=== PATIENT | male | born 1985 | race Caucasian/White ===

== ENCOUNTER 2016-06-06 16:36 | Inpatient (IN) | payer BC, OTHER ==
[2016-06-06 16:59] VITALS: BMI 27.8
[2016-06-06] MEDS ORDERED: ALBUTEROL SO4 2.5/IPRATROPIUM 0.5 INH SOL 3 ML VIAL.NEB. NEB ONE ×2 (17:26→17:41)
--- NOTE | 2016-06-06 17:26 | PDOC ---
History of Present Illness - History of Present Illness Initial Comments: 06/06/16 18:10 The patient is a 31 year old male, with a significant past medical history of HIV/AIDS, who presents to the emergency department with vomit, diarrhea, cough and shortness of breath since earlier this week and new onset of fever yesterday. He states he has not had an episode of vomiting since about 5 days ago, but reports continued nausea. He reports similar experience with his episodes of diarrhea. He reports his diarrhea as watery and brown. He denies any blood or mucous in his diarrhea. The patient states he is a smoker, however , has had increased shortness of breath for the past couple of day. He denies chest pain, headache and dizziness. He denies constipation. He denies dysuria, frequency, urgency and hematuria. Allergies: Penicillins Social history: tobacco use daily. PCP - Dr. Chau <Maya Landeros - Last Filed: 06/06/16 19:28> <Evelyn Evans - Last Filed: 06/07/16 01:22> - General Chief Complaint: Shortness of Breath Stated Complaint: SOB/FEVER/COUGH Time Seen by Provider: 06/06/16 17:25 Past History <Maya Landeros - Last Filed: 06/06/16 19:28> - Past Medical History Hypercholesterolemia: Yes HIV: Yes - Psycho/Social/Smoking Cessation Hx Anxiety: Yes Suicidal Ideation: No Smoking History: Current every day smoker Have you smoked in the past 12 months: Yes Number of Cigarettes Smoked Daily: 10 Information on smoking cessation initiated: No Hx Alcohol Use: No Drug/Substance Use Hx: No Substance Use Type: None <Evelyn Evans - Last Filed: 06/07/16 01:22> - Past Medical History Allergies/Adverse Reactions: Allergies Allergy/AdvReac Type Severity Reaction Status Date / Time Penicillins Allergy Unknown Verified 06/06/16 17:00 Home Medications: Ambulatory Orders Emtricitab/Rilpiviri/Tenof Ala [Odefsey Tablet] 1 each PO DAILY 06/06/16 Review of Systems - Review of Systems Able to Perform ROS?: Yes Comments:: 06/06/16 18:10 CONSTITUTIONAL: (+) fever, Absent:chills, diaphoresis, generalized weakness, malaise, loss of appetite HEENT: Absent: rhinorrhea, nasal congestion, throat pain, throat swelling, difficulty swallowing, mouth swelling, ear pain, eye pain, visual Changes CARDIOVASCULAR: Absent: chest pain, syncope, palpitations, irregular heart rate, lightheadedness , peripheral edema RESPIRATORY: (+) shortness of breath, dyspnea with exertion. Absent: cough, orthopnea, wheezing, stridor, hemoptysis GASTROINTESTINAL: (+) nausea, vomiting, diarrhea. Absent: abdominal pain, abdominal distension, constipation, melena, hematochezia GENITOURINARY: Absent: dysuria, frequency, urgency, hesitancy, hematuria, flank pain, genital pain MUSCULOSKELETAL: Absent: myalgia, arthralgia, joint swelling SKIN: Absent: rash, itching, pallor HEMATOLOGIC/IMMUNOLOGIC: Absent: easy bleeding, easy bruising, lymphadenopathy, frequent infections ENDOCRINE: Absent: unexplained weight gain, unexplained weight loss, heat intolerance, cold intolerance NEUROLOGIC: Absent: headache, focal weakness or paresthesias, dizziness, unsteady gait, seizure, mental status changes, bladder or bowel incontinence PSYCHIATRIC: Absent: anxiety, depression, suicidal or homicidal ideation, hallucinations. <Maya Landeros - Last Filed: 06/06/16 19:28> *Physical Exam - Vital Signs Last Vital Signs Temp Pulse Resp BP Pulse Ox 98.7 F 100 H 18 117/79 93 L 06/06/16 16:55 06/06/16 16:55 06/06/16 16:55 06/06/16 16:55 06/06/16 16:55 - Physical Exam Comments: 06/06/16 18:11 GENERAL: Well developed, well nourished. Awake and alert. No acute distress. HEENT: Normocephalic, atraumatic. PERRLA, EOMI. No conjunctival pallor. Sclera are non- icteric. Moist mucous membranes. Oropharynx is clear. NECK: Supple. Full ROM. No JVD. Carotid pulses 2+ and symmetric, without bruits. No thyromegaly. No lymphadenopathy. CARDIOVASCULAR: Regular rate and rhythm. No murmurs, rubs, or gallops. Distal pulses are 2+ and symmetric. PULMONARY: (+) scattered ronchi and crackles. No evidence of respiratory distress.No wheezing. ABDOMINAL: Soft. Non-tender. Non-distended. No rebound or guarding. No organomegaly. Normoactive bowel sounds. MUSCULOSKELETAL Normal range of motion at all joints. No bony deformities or tenderness. No CVA tenderness. EXTREMITIES: No cyanosis. No clubbing. No edema. No calf tenderness. SKIN: Warm and dry. Normal capillary refill. No rashes. No jaundice. NEUROLOGICAL: Alert, awake, appropriate. Cranial nerves 2-12 intact. Normoreflexic in the upper and lower extremities. Normal speech. Toes are down-going bilaterally. Gait is normal without ataxia. PSYCHIATRIC: Cooperative. Good eye contact. Appropriate mood and affect. <Maya Landeros - Last Filed: 06/06/16 19:28> - Vital Signs Last Vital Signs Temp Pulse Resp BP Pulse Ox 98.7 F 100 H 18 117/79 93 L 06/06/16 16:55 06/06/16 16:55 06/06/16 16:55 06/06/16 16:55 06/06/16 16:55 <Evelyn Evans - Last Filed: 06/07/16 01:22> ED Treatment Course - LABORATORY CBC & Chemistry Diagram: 06/06/16 18:15 06/06/16 18:15 - RADIOLOGY Radiograph Interpretation: 06/06/16 19:28 CXR was read at 19:[address] Weaver Impression: Hyperaeration - Medications Given in the ED: ED Medications Discontinued Medications Generic Name Dose Route Start Last Admin Trade Name Freq PRN Reason Stop Dose Admin Albuterol/Ipratropium 1 amp 06/06/16 17:26 06/06/16 17:42 Duoneb - NEB 06/06/16 17:27 1 amp ONCE ONE Administration <Maya Landeros - Last Filed: 06/06/16 19:28> - LABORATORY CBC & Chemistry Diagram: 06/06/16 18:15 06/06/16 18:15 <Evelyn Evans - Last Filed: 06/07/16 01:22> Medical Decision Making - Medical Decision Making 06/06/16 22:53 I spoke at length w pt and his partner because of concern for new wheezing-no prior h/o asthma. He has some body aches,nausea,fever,cough ct scan chest - no infiltrates,no consolidation,no ,masses -influenza negative -pt remains slightly hypoxic (91%) and requires oxygen -he denies any chest pain and his ekg is nsr with no signs of ischemia - I told him that he requires bronchodilators and steroids. He feels that he simply needs some antibiotics PMH PCP pneumonia,HIV,tobacco use 06/07/16 00:18 -pt agrees to stay, he still feels sob 06/07/16 01:12 imp reactive airway 06/07/16 01:14 <Evelyn Evans - Last Filed: 06/07/16 01:22> *DC/Admit/Observation/Transfer - Attestations Scribe Attestion: 06/06/16 18:11 Documentation prepared by Maya Landeros, acting as medical services coordinator for Evelyn Evans MD <Maya Landeros - Last Filed: 06/06/16 19:28> - Discharge Dispostion Admit: Yes <Evelyn Evans - Last Filed: 06/07/16 01:22> Diagnosis at time of Disposition: Wheezing Dyspnea Qualifiers: Dyspnea type: shortness of breath Qualified Code(s): R06.02 - Shortness of breath
[2016-06-06] MEDS ORDERED: ONDANSETRON 4 MG/2 ML VIAL ONE (17:50)
[2016-06-06 18:33] LABS: BASOPHIL 1.2 % (0-2.0); EOSINOPHIL 0.3 % (0-4.5); MCH 31.6 pg (25.7-33.7); MCHC 33.4 g/dl (32.0-35.9); MEAN CELL VOLUME 94.6 fl (80-96); MEAN PLT VOLUME 8.8 fl (7.5-11.1); PLATELET COUNT 248 K/MM3 (134-434); RDW 13.3 % (11.9-15.9); WHITE BLOOD COUNT 10.2 K/mm3 (4.0-10.0)
[2016-06-06 18:56] LABS: ALBUMIN 4.1 g/dl (3.4-5.0); CREATININE 1.7 mg/dL (0.7-1.3)
[2016-06-06 19:02] LABS: BILIRUBIN,TOTAL 0.6 mg/dL (0.2-1.0); TOT PROT 8.1 g/dl (6.4-8.2)
[2016-06-06] MEDS ORDERED: methylPREDNISolone NA SUCC 125 MG/2 ML VIAL IVPB ONE (22:52)
[2016-06-06] MEDS ORDERED: ALBUTEROL SO4 0.083% IH SOL 2.5 MG/3 ML VIAL.NEB. NEB ONE ×2 (22:55→23:41)
[2016-06-06] MEDS ORDERED: methylPREDNISolone NA SUCC 125 MG/2 ML VIAL ONE (22:58)
[2016-06-06] MEDS ORDERED: IPRATROPIUM BR 0.02% 0.5 MG/2.5 ML VIAL.NEB. NEB ONE (22:59)
[2016-06-06] MEDS: ALBUTEROL SO4 2.5/IPRATROPIUM 0.5 INH SOL 3 ML VIAL.NEB. NEB SCH ×2 (23:12→23:15)
[2016-06-06] MEDS ORDERED: AZITHROMYCIN 250 MG TABLET (FP) PO ONE (23:32)
[2016-06-06] MEDS ORDERED: AZITHROMYCIN 250 MG TABLET (FP) ONE (23:42)
--- NOTE | 2016-06-07 01:22 | PN ---
<Elisabeth Pillai - Last Filed: 06/07/16 01:22> Teaching Attending Note Name of Resident: Loren Prather ATTENDING PHYSICIAN STATEMENT I saw and evaluated the patient. I reviewed the resident's note and discussed the case with the resident. I agree with the resident's findings and plan as documented. SUBJECTIVE: OBJECTIVE: ASSESSMENT AND PLAN: <López Olivareshel - Last Filed: 06/07/16 03:30> Teaching Attending Note ATTENDING PHYSICIAN STATEMENT I saw and evaluated the patient. I reviewed the resident's note and discussed the case with the resident. I agree with the resident's findings and plan as documented. SUBJECTIVE: The patient is a 31 yo M with a PMHx of HIV/AIDS who presents with vomiting, diarrhea, and cough and dyspnea. Patient reports he is HIV (+) due to substance abuse. He also reports recent steroid use via injectables for the past 6 months. He denies headache or dizziness. He denies fever, chills, nausea, constipation. He denies dysuria, frequency, urgency or hematuria. OBJECTIVE: Physical Last Vital Signs Temp Pulse Resp BP Pulse Ox 98.6 F 106 H 24 114/65 93 L 06/07/16 01:30 06/07/16 01:30 06/07/16 01:30 06/07/16 01:30 06/06/16 19:35 GEN: NAD HEENT: NCAT, PERRL CARD: + Tachycardic, S1 S2 RESP: + Mildy decreased breath sounds at the bases. CTAB ABD: NT, BWS x4 EXT: - CCE CBCD WBC 10.2 K/mm3 (4.0-10.0) H D 06/06/16 18:15 RBC 5.78 M/mm3 (4.00-5.60) H 06/06/16 18:15 Hgb 18.2 GM/dL (11.7-16.9) H D 06/06/16 18:15 Hct 54.6 % (35.4-49) H D 06/06/16 18:15 MCV 94.6 fl (80-96) 06/06/16 18:15 MCHC 33.4 g/dl (32.0-35.9) 06/06/16 18:15 RDW 13.3 % (11.9-15.9) D 06/06/16 18:15 Plt Count 248 K/MM3 (134-434) 06/06/16 18:15 MPV 8.8 fl (7.5-11.1) 06/06/16 18:15 CMP Sodium 138 mmol/L (136-145) 06/06/16 18:15 Potassium 4.0 mmol/L (3.5-5.1) 06/06/16 18:15 Chloride 102 mmol/L (98-107) 06/06/16 18:15 Carbon Dioxide 24 mmol/L (21-32) 06/06/16 18:15 Anion Gap 12 (8-16) 06/06/16 18:15 BUN 14 mg/dL (7-18) 06/06/16 18:15 Creatinine 1.7 mg/dL (0.7-1.3) H D 06/06/16 18:15 Creat Clearance w eGFR 46.94 (>60) 06/06/16 18:15 Calcium 9.0 mg/dL (8.5-10.1) 06/06/16 18:15 Total Bilirubin 0.6 mg/dL (0.2-1.0) D 06/06/16 18:15 AST 31 U/L (15-37) 06/06/16 18:15 ALT 59 U/L (12-78) D 06/06/16 18:15 Alkaline Phosphatase 88 U/L (45-117) D 06/06/16 18:15 Total Protein 8.1 g/dl (6.4-8.2) D 06/06/16 18:15 Albumin 4.1 g/dl (3.4-5.0) D 06/06/16 18:15 Imaging: Chest CT Impression: Mild chronic lung disease with no acute pathology within the chest. Chest Xray Impression: Hyperaeration, otherwise normal chest. EKG Sinus tachycardic at 100 bpm. QTC at 423 ASSESSMENT AND PLAN: The patient is a 31 yo M with a PMHx of HIV/AIDS who presents with SOB, vomiting, diarrhea being admitted for dyspnea. 1.) Dyspnea - Differential diagnosis: Asthma/ bronchitis/ Questionable pulmonary HTN / Questionable possible cardiac etiology/ Infiltrative disease - Low wells score of 1.5 (Tachycardia) less likely PE - CT Chest with chronic lung disease - Echo complete - Trend troponins/ EKG - Duo nebs - Prednisone 60 mg in AM - Flu negative - No evidence of acute lung disease seen on CT - Pulmonary consult 2.) Increased Hematocrit - Most likey due to dehydration - IVF - Repeat CBC 3.) Acute renal failure - IVF - Urine lytes in AM - Most likely due to dehydration 4.) AIDS - ID Consult - Last CD4 count was 300 and viral load was undetectable - Continue with Odefsey 5.) DVT Ppx - Heparin 5,000 units SQ Documentation prepared by Corie Olivares, acting as medical art therapist for Elisabeth Pillai DO.
[2016-06-07 02:08] LABS: TROPONIN I < 0.02 ng/ml (0.00-0.05)
[2016-06-07] MEDS ORDERED: ALBUTEROL SO4 2.5/IPRATROPIUM 0.5 INH SOL 3 ML VIAL.NEB. NEB PRN (03:21)
--- NOTE | 2016-06-07 03:24 | HP ---
CHIEF COMPLAINT: Shortness of breath PCP: Dr. Chau HISTORY OF PRESENT ILLNESS: Patient is a 31 year old male with a PMHx of HIV/AIDS with CD4 300 and undetectable viral load three months ago presented today complaining of shortness of breath that began yesterday. Patient states the shortness of breath worsened today, which prompted this hospital visit. Patient reports he "has not been feeling right" for the last two weeks with runny nose, productive nonbloody cough with green phlegm, fatigue, and subjective fevers. He states the cough is so "violent" that it hurts his chest whenever he coughs or takes a deep breath in. Patient also states he had a "stomach virus" one week ago with vomiting and diarrhea. Patient reports that he began smoking a half a pack of cigarettes one year ago and at the same time started working at the [employer] for the [employer] where he is exposed to a lot of dust and dirt. Patient also notes his HAART medication was changed from Atripla to Odefsey due to his increasing creatinine three months ago. He also admits to taking injectable steroids called nandrolone decanoate for bodybuilding 6 months on and 6 months off. Otherwise, patient denies chest pain, palpitations , abdominal pain, headache, dizziness, loss of consciousness, acute visual changes. ER course was notable for: (1) DuoNeb x3 (2) Solu-Medrol 125mg IV (3) Azithromycin 500mg IV Recent Travel: Denies PAST MEDICAL HISTORY: HIV/AIDS (7 years ago contracted through IV drug use), Pneumocystits pneumonia PAST SURGICAL HISTORY: Denies Social History: Smokin.5 PPD Alcohol: Occasionally Drugs: Former IV Drug user Family History: "Different types of cancer in both sides of the family" Allergies: Penicillins Allergy (Unknown, Verified 06/06/16 17:00) HOME MEDICATIONS: Home Medications Medication Instructions Recorded Emtricitab/Rilpiviri/Tenof Ala 1 each PO DAILY 06/06/16 [Odefsey Tablet] REVIEW OF SYSTEMS CONSTITUTIONAL: fever, chills, diaphoresis, generalized weakness, malaise Absent: loss of appetite, weight change HEENT: rhinorrhea, nasal congestion Absent: throat pain, throat swelling, difficulty swallowing, mouth swelling, ear pain, eye pain, visual changes CARDIOVASCULAR: Absent: chest pain, syncope, palpitations, irregular heart rate, lightheadedness , peripheral edema RESPIRATORY: cough, shortness of breath Absent: dyspnea with exertion, orthopnea, wheezing, stridor, hemoptysis GASTROINTESTINAL: Absent: abdominal pain, abdominal distension, nausea, vomiting, diarrhea, constipation, melena, hematochezia GENITOURINARY: Absent: dysuria, frequency, urgency, hesitancy, hematuria, flank pain, genital pain MUSCULOSKELETAL: Absent: myalgia, arthralgia, joint swelling, back pain, neck pain SKIN: Absent: rash, itching, pallor HEMATOLOGIC/IMMUNOLOGIC: Absent: easy bleeding, easy bruising, lymphadenopathy, frequent infections ENDOCRINE: Absent: unexplained weight gain, unexplained weight loss, heat intolerance, cold intolerance NEUROLOGIC: Absent: headache, focal weakness or paresthesias, dizziness, unsteady gait, seizure, mental status changes, bladder or bowel incontinence PSYCHIATRIC: Absent: anxiety, depression, suicidal or homicidal ideation, hallucinations. Vital Signs - 24 hr 06/06/16 06/06/16 06/06/16 16:55 18:42 19:35 Temperature 98.7 F 98.9 F Pulse Rate 100 H Pulse Rate [ 108 H Left Radial] Respiratory 18 26 H Rate Blood Pressure 117/79 Blood Pressure 126/67 [Left Arm] O2 Sat by Pulse 93 L 96 93 L Oximetry (%) 06/07/16 06/07/16 01:30 03:23 Temperature 98.6 F 98.6 F Pulse Rate Pulse Rate [ 106 H 81 Left Radial] Respiratory 24 22 Rate Blood Pressure Blood Pressure 114/65 103/65 [Left Arm] O2 Sat by Pulse 100 Oximetry (%) PHYSICAL EXAMINATION GENERAL: Awake, alert, and fully oriented, in no acute distress. HEAD: Normal with no signs of trauma. EYES: Pupils equal, round and reactive to light, sclera anicteric, conjunctiva clear. EARS, NOSE, THROAT: Oropharynx clear without exudates. Moist mucous membranes. NECK: Supple without lymphadenopathy, JVD, or masses. LUNGS: Decreased breath sounds throughout lung bases bilaterally. No wheezes, and no crackles. No accessory muscle use. HEART: Tachycardic with normal rhythm, normal S1 and S2 without murmur, rub or gallop. ABDOMEN: Soft, nontender, not distended, normoactive bowel sounds, no guarding, no rebound, no masses. No hepatomegaly or splenomegaly. EXTREMITIES: No calf tenderness. No peripheral edema. NEUROLOGICAL: No focal deficits. Normal speech. PSYCHIATRIC: Cooperative. Good eye contact. Appropriate mood and affect. SKIN: Warm, dry, normal turgor, no rashes or lesions noted. Lab Results WBC 10.2 K/mm3 (4.0-10.0) H D 06/06/16 18:15 RBC 5.78 M/mm3 (4.00-5.60) H 06/06/16 18:15 Hgb 18.2 GM/dL (11.7-16.9) H D 06/06/16 18:15 Hct 54.6 % (35.4-49) H D 06/06/16 18:15 MCV 94.6 fl (80-96) 06/06/16 18:15 MCHC 33.4 g/dl (32.0-35.9) 06/06/16 18:15 RDW 13.3 % (11.9-15.9) D 06/06/16 18:15 Plt Count 248 K/MM3 (134-434) 06/06/16 18:15 Sodium 138 mmol/L (136-145) 06/06/16 18:15 Potassium 4.0 mmol/L (3.5-5.1) 06/06/16 18:15 Chloride 102 mmol/L (98-107) 06/06/16 18:15 Carbon Dioxide 24 mmol/L (21-32) 06/06/16 18:15 Anion Gap 12 (8-16) 06/06/16 18:15 BUN 14 mg/dL (7-18) 06/06/16 18:15 Creatinine 1.7 mg/dL (0.7-1.3) H D 06/06/16 18:15 Random Glucose 68 mg/dL (74-106) L D 06/06/16 18:15 Calcium 9.0 mg/dL (8.5-10.1) 06/06/16 18:[address]: Mild chronic lung disease with no acute pathology within the chest. Chest Xray: Impression: Hyperaeration, otherwise normal chest. EKG: Sinus tachycardic @100 BPM. QTC at 423 ASSESSMENT/PLAN: Patient is a 31 year old male with a PMHx of HIV/AIDS who presents for shortness of breath associated with fatigue, productive cough, and subjective fevers that worsened in the last 24 hours. Patient admitted for for further monitoring and management. Dyspnea -Possibly due to Bronchitis, infiltrative disease, URI, PE -WELLS SCORE: 1.5 with just tachycardia. -91%-92% 02 on room air -Continue 2L of 02 -D-dimer ordered -BNP ordered -CT Chest revealed chronic lung disease -ECHO ordered -Trend troponins, first set negative -Continue Duo-Neb PRN -Prednisone 60mg daily -Pulmonology consult placed -Flu negative FITZ -Likely due to dehydration from recent gastroenteritis -Creatinine 1.7 with last one 1.4 three months ago -Normal Saline @100mls/hr -Urine electrolytes in the morning -Continue to trend BMP Increased Hematocrit -Likely due to dehydration -IV Normal Saline ordered @100mls/hr -Trend CBC HIV/AIDS -Last CD4 count 300 and Viral load undetectable three months ago -Will continue Odefsey -ID Consult placed F/E/N -IV NS @100mls/hr -Electrolytes wnl -Regular Diet Prophylaxis -Heparin 5000 SQ for DVT -No GI needed Disposition -Full code -Admitted to noncardiac telemetry Visit type - Emergency Visit Emergency Visit: Yes ED Registration Date: 06/07/16 Care time: The patient presented to the Emergency Department on the above date and was hospitalized for further evaluation of their emergent condition. - New Patient This patient is new to me today: Yes Date on this admission: 06/07/16 - Critical Care Critical Care patient: No
[2016-06-07] MEDS ORDERED: SODIUM CHLORIDE 1,000 ML IV SCH ×2 (05:00→06:45)
[2016-06-07 06:29] LABS: MCH 31.6 pg (25.7-33.7); MCHC 33.5 g/dl (32.0-35.9); MEAN CELL VOLUME 94.2 fl (80-96); MEAN PLT VOLUME 8.6 fl (7.5-11.1); PLATELET COUNT 246 K/MM3 (134-434); RDW 13.1 % (11.9-15.9); WHITE BLOOD COUNT 6.2 K/mm3 (4.0-10.0)
[2016-06-07] MEDS ORDERED: HEPARIN NA (PORCINE) 5,000 UNITS/ML 1ML VIAL ONE (06:54)
[2016-06-07] MEDS: HEPARIN NA (PORCINE) 5,000 UNITS/ML 1ML VIAL SQ SCH ×2 (07:01→14:36)
[2016-06-07 07:03] LABS: CALCIUM 8.7 mg/dL (8.5-10.1); CREATININE 1.6 mg/dL (0.7-1.3)
[2016-06-07] MEDS ORDERED: HEPARIN NA (PORCINE) 5,000 UNITS/ML 1ML VIAL SQ SCH (10:00)
[2016-06-07] MEDS ORDERED: predniSONE 20 MG TABLET (UD) PO SCH ×2 (10:00→13:43)
--- NOTE | 2016-06-07 13:38 | CON.PULM ---
Consult Consult Specialty:: PULMONARY Referred by:: Dr. Pillai Reason for Consultation:: shortness of breath - History of Present Illness Chief Complaint: shortness of breath History of Present Illness: 31yo male with h/o HIV CD4 300, h/o PCP pneumonia, anabolic steroid use who presents with worsening shortness of breath x 2 days. Reports recent GI illness with vomiting and diarrhea, +sick contacts, developed cough productive of green sputum. +subjective fevers and chills. No chest pain or palpitations. Reports compliance with his ART. He does smoke 1.5 PPD x 1 year and works with the [employer] where he is exposed to a lot of dust. - History Source History Provided By: Patient, Medical Record Limitations to Obtaining History: No Limitations - Past Medical History Pulmonary: Yes: Pneumonia (on 01/21/2014) Infectious Disease: Yes: HIV (Patient dois closes that his HIV Test was positive in 2013 and he is not on any treatment. HIV was related on unprotected sex.) - Past Surgical History Past Surgical History: Yes: None - Alcohol/Substance Use Hx Alcohol Use: No History of Substance Use: reports: None - Smoking History Smoking history: Current every day smoker Have you smoked in the past 12 months: Yes Aproximately how many cigarettes per day: 10 - Social History ADL: Independent History of Recent Travel: No Home Medications - Allergies Allergies/Adverse Reactions: Allergies Allergy/AdvReac Type Severity Reaction Status Date / Time Penicillins Allergy Unknown Verified 06/06/16 17:00 - Home Medications Home Medications: Ambulatory Orders Emtricitab/Rilpiviri/Tenof Ala [Odefsey Tablet] 1 each PO DAILY 06/06/16 Biotin 0 mg PO DAILY 06/07/16 Milk Thistle 0 mg PO DAILY 06/07/16 Multivitamins [Tab-A-Vit -] 1 tab PO DAILY 06/07/16 Family Disease History - Family Disease History Other Family History: non-contributory Review of Systems - Review of Systems Constitutional: reports: Chills, Fever, Malaise Eyes: denies: Recent Change in Vision HENT: denies: Nasal Congestion, Throat Pain Neck: denies: Stiffness, Tenderness Cardiovascular: denies: Chest Pain, Shortness of Breath Respiratory: reports: Cough, SOB. denies: Hemoptysis, Wheezing Gastrointestinal: denies: Abdominal Pain, Nausea, Vomiting Genitourinary: denies: Dysuria, Hematuria Neurological: denies: Dizziness, Headache Endocrine: denies: Unexplained Weight Loss Physical Exam Vital Sings: Vital Signs Temperature 98.1 F 06/07/16 09:00 Pulse Rate 83 06/07/16 10:15 Respiratory Rate 18 06/07/16 10:15 Blood Pressure 122/60 06/07/16 10:15 O2 Sat by Pulse Oximetry (%) 97 06/07/16 10:15 Constitutional: Yes: No Distress, Calm Eyes: Yes: Conjunctiva Clear, EOM Intact HENT: Yes: Atraumatic, Normocephalic Neck: Yes: Supple, Trachea Midline Cardiovascular: Yes: Regular Rate and Rhythm Respiratory: Yes: Diminished (distant breath sounds), Rales (scattered) ...Clubbing: No Gastrointestinal: Yes: Normal Bowel Sounds, Soft. No: Tenderness Edema: No Labs: CBC, BMP 06/07/16 06:15 06/07/16 06:15 Imaging - Results Cat Scan: Report Reviewed, Image Reviewed (no infiltrates, mildly thickened airways) Problem List - Problems (1) Acute bronchitis Code(s): J20.9 - ACUTE BRONCHITIS, UNSPECIFIED (2) HIV (human immunodeficiency virus infection) Code(s): Z21 - ASYMPTOMATIC HUMAN IMMUNODEFICIENCY VIRUS INFECTION STATUS (3) Smoker Code(s): F17.200 - NICOTINE DEPENDENCE, UNSPECIFIED, UNCOMPLICATED Assessment/Plan Acute on Chronic Bronchitis HIV Smoker h/o PCP Pneumonia - CT chest findings consistent with chronic bronchitis - can give short course of antibiotics (Z-pack) - prednisone 40mg daily x 5 days - inhaled bronchodilators as needed - smoking cessation enforced - DVT prophylaxis - will need outpt PFTs for baseline spirometry, lung volumes, diffusing capacity - can be discharged home from pulmonary standpoint
[2016-06-07] MEDS ORDERED: ALBUTEROL SO4 0.083% IH SOL 2.5 MG/3 ML VIAL.NEB. NEB PRN (13:45)
[2016-06-07] MEDS ORDERED: ALBUTEROL SO4 2.5/IPRATROPIUM 0.5 INH SOL 3 ML VIAL.NEB. NEB SCH ×2 (14:00→15:09)
--- NOTE | 2016-06-07 14:10 | DS ---
Addendum entered and electronically signed by Justo Vargas RES 06/07/16 15:46 : ECHO was also done which was unremarkable: 66.7% EF, LVSF nl, LV nl size, no regional wall abnormality, mild tricuspid regurg, no pericardial effusion. Original Note: Physical Exam: SUBJECTIVE: Patient seen and examined at bedside in ER. Pt states he feels better. No longer has SOB, but still has cough which is improved and sputum production has decreased. Pt denies fevers since coming to ER. He denies CP, abd pain, RENTERIA, light-headedness, or any GI/ issues. OBJECTIVE: Vital Signs Temperature 98.1 F 06/07/16 09:00 Pulse Rate 83 06/07/16 10:15 Respiratory Rate 18 06/07/16 10:15 Blood Pressure 122/60 06/07/16 10:15 O2 Sat by Pulse Oximetry (%) 97 06/07/16 10:15 PHYSICAL EXAM GENERAL: The patient is awake, alert, and fully oriented, in no acute distress. HEAD: Normal with no signs of trauma. EYES: PERRL, extraocular movements intact, sclera anicteric, conjunctiva clear. ENT: Ears normal, nares patent, oropharynx clear without exudates, moist mucous membranes. NECK: Trachea midline, full range of motion, supple. LUNGS: Breath sounds equal, clear to auscultation bilaterally, no wheezes, no crackles, no accessory muscle use. HEART: Regular rate and rhythm, S1, S2 without murmur, rub or gallop. ABDOMEN: Soft, nontender, nondistended, normoactive bowel sounds, no guarding, no rebound, no hepatosplenomegaly, no masses. EXTREMITIES: 2+ pulses, warm, well-perfused, no edema. NEUROLOGICAL: Cranial nerves II through XII grossly intact. Normal speech, gait not observed. PSYCH: Normal mood, normal affect. SKIN: Warm, dry, normal turgor, no rashes or lesions noted. LABS Laboratory Results - last 24 hr 06/07/16 06/07/16 06/07/16 06:15 06:15 06:15 WBC 6.2 D RBC 5.36 Hgb 16.9 Hct 50.5 H MCV 94.2 MCHC 33.5 RDW 13.1 Plt Count 246 MPV 8.6 Sodium 141 Potassium 4.5 Chloride 106 Carbon Dioxide 24 Anion Gap 11 BUN 13 Creatinine 1.6 H Random Glucose 138 H D Calcium 8.7 Troponin I < 0.02 HOSPITAL COURSE: Date of Admission:06/07/16 Date of Discharge: 06/07/16 31 y/o M w/PMH of HIV (CD4 count 300, undetectable viral load 3 mo ago) presented to ER w/SOB that began 1 day before arriving to [facility]. He said he had been feeling sick for about 2 weeks with runny nose, cough, green phlegm as well as being having sick contact with people with n/v/diarrhea which he also had about 1 week ago and resovled about 2 days ago. He currently feels better after receving azithromycin and prednisone in ER. He denies any SOB currently. CXR was done which showed acute pathology and chest CT showed mild chronic lung disease with no acute pathology within the chest. Pt states he has had similar symptoms in the past but usually resolved with a course of abx. DUring the last 2 weeks pt also stated he has not been eating and drinking much, especially in the last two days. He also admitted to using anabolic steroids ( nandrolone) 6 mo on and 6 mo off (currently on month 4 of on cycle). BUN/Cr were noted to be elevated here but states that he has had HAART therapy changed 3 months ago because Atripla was causing increase in creatinine and was switched to Odefsey. 3 months ago at PCP office his Cr was 1.4. Pt was also noted to have a hematocrit of 54. The FITZ and high hematocrit were most likely due to dehydration and poor oral intake and a possible side effect of nandrolone deconate is polycythemia. Both Cr and hematocrit improved mildly after receiving IVF. Pt's respiratory symptoms most likely due to acut nilda chronic bronchitis. Pt will be discharged with z-kiki and prednisone 40 mg of 5 days as recommended by pulm. Pt is to also follow up with his PCP Dr. Chau within 1 week. Minutes to complete discharge: 35 Discharge Summary Reason For Visit: DYSPNEA WHEEZING Current Active Problems Acute bronchitis (Acute) Dyspnea (Acute) HIV (human immunodeficiency virus infection) (Acute) Smoker (Acute) Wheezing (Acute) - Home Medications Comprehensive Discharge Medication List: Ambulatory Orders Emtricitab/Rilpiviri/Tenof Ala [Odefsey Tablet] 1 each PO DAILY 06/06/16 Biotin 0 mg PO DAILY 06/07/16 Milk Thistle 0 mg PO DAILY 06/07/16 Multivitamins [Tab-A-Vit -] 1 tab PO DAILY 06/07/16 Problem List - Problems (1) Acute bronchitis Code(s): J20.9 - ACUTE BRONCHITIS, UNSPECIFIED (2) Dyspnea Code(s): R06.00 - DYSPNEA, UNSPECIFIED Qualifiers: Dyspnea type: shortness of breath Qualified Code(s): R06.02 - Shortness of breath (3) HIV (human immunodeficiency virus infection) Code(s): Z21 - ASYMPTOMATIC HUMAN IMMUNODEFICIENCY VIRUS INFECTION STATUS (4) Smoker Code(s): F17.200 - NICOTINE DEPENDENCE, UNSPECIFIED, UNCOMPLICATED This patient is new to me today: Yes Date on this admission: 06/07/16 Emergency Visit: Yes ED Registration Date: 06/07/16 Care time: The patient presented to the Emergency Department on the above date and was hospitalized for further evaluation of their emergent condition. Critical Care patient: No - Discharge Referral Referred to [facility] Med P.C.: No
--- NOTE | 2016-06-07 14:34 | PN ---
Teaching Attending Note Name of Resident: Justo Vargas ATTENDING PHYSICIAN STATEMENT I saw and evaluated the patient. I reviewed the resident's note and discussed the case with the resident. I agree with the resident's findings and plan as documented. SUBJECTIVE:currently asymptomatic. states SOB resolved once arrived to ER and "some medication" with improvement. continues to have productive green sputum. requesting to go home. states hes been taking IV steroids daily for the past 4 months. that he does 6 months on and 6 off. states he uses clean needles every time and injects into his thighs or buttocks. states only medication change was his HIV medication and that hes compliant. denies CP, fever, chills, night sweats, weight loss, recent travel or sick contacts. +smoker OBJECTIVE: Last Vital Signs Temp Pulse Resp BP Pulse Ox 98.1 F 83 18 122/60 97 06/07/16 09:00 06/07/16 10:15 06/07/16 10:15 06/07/16 10:15 06/07/16 10:15 General NAD CV S1 S2 RRR no murmur/rub/gallop Lungs CTA B/L no wheezing/rales/rhonchi ASSESSMENT AND PLAN: 31yo M with PMH HIV on HARRT, continuous anabolic steroid use and hx of IVDA presents to the ER and was admitted for further evaluation of their emergent condition 1. Acute bronchitis- afebrile. has productive cough. will cont zpack dose and prednisone 40mg daily x5 days. evaluated by pulmonary. will need to f/u with pulmopnary for outpatient testing. 2. Polycythemia- possible dehydration vs steroid use. now resolved. 3. HIV on HARRT- cont HARRT 4. Continous IV steroid use- counseled on risks of steroid use. answered all questions. verbalized understanding 5. FITZ- unknown baseline. likely from previous HARRT therapy vs steroid use. will need to f/u with PMD for monitoring of kidney function. 6. d/c home on zpack and steroids.
[2016-06-07 15:09] VITALS: BP 120/68; PULSE 97; TEMP 98.1
--- NOTE | 2016-06-07 15:29 | EKG ---
Test Reason : Blood Pressure : / mmHG Vent. Rate : 100 BPM Atrial Rate : 100 BPM P-R Int : 118 ms QRS Dur : 084 ms QT Int : 328 ms P-R-T Axes : 053 024 031 degrees QTc Int : 423 ms NORMAL SINUS RHYTHM NORMAL ECG WHEN COMPARED WITH ECG OF 02-FEB-2014 17:36, NO SIGNIFICANT CHANGE WAS FOUND Confirmed by SOHEILA CHERRY MD ([id number]) on 06/07/2016 3:28:59 PM Referred By: Confirmed By:SOHEILA CHERRY MD
[2016-06-08] MEDS ORDERED: AZITHROMYCIN 250 MG TABLET (FP) PO SCH (10:00)
== END 2016-06-07 16:35 | disposition home or self-care (01) | DRG 202 ==
LOC: JER 16:36 → JERBED 06-07 01:42 → J4S 06-07 13:15
PROVIDERS: ADMIT Internal Medicine; ATTEND Internal Medicine
DX: J20.9 Acute bronchitis, unspecified (principal); N17.9 Acute kidney failure, unspecified; Z21 Asymptomatic human immunodeficiency virus [HIV] infection status; F17.210 Nicotine dependence, cigarettes, uncomplicated; E86.0 Dehydration; D75.1 Secondary polycythemia
CPT/HCPCS: 36415; 71020-TC; 71250-TC; 80048; 80053; 82550; 82553; 83880; 84484; 85025; 85027; 85379; 87254; 87804; 93005; 93010; 93306-TC; 94640; 99285-25; J1644

== ENCOUNTER 2018-09-01 06:22 | Emergency (ER) | payer BC ==
[2018-09-01 07:18] VITALS: BP 141/87; PULSE 114; TEMP 97.7; BMI 27.1
--- NOTE | 2018-09-01 07:44 | PDOC ---
History of Present Illness - General Chief Complaint: Syncope/Near Syncope Stated Complaint: SYNCOPE/LIGHTHEADED Time Seen by Provider: 09/01/18 07:32 History Source: Patient Exam Limitations: No Limitations - History of Present Illness Initial Comments: 33 yo M w a pmh of HIV/AIDs and polysubstance abuse presents to the ER secondary to on and off syncopal episodes. He reports that he did cocaine 1 hour prior to arrival which explains why he is tachycardic in triage. The patient states that for the past month he has been experiencing on and off syncopal episodes which frequently occur when he drinks a significant amount of alcohol, does cocaine, or has sex for over an hour. He states that 2 weeks prior that while he was having intercourse with his girlfriend for 2 hours his heart started racing, he felt dizzy, nauseous, and felt like he was going to pass out. He reports to be adherent to his HIV ART therapy medications. PCP: Dr. Parker PSH: None reported Social Hx: Used cocaine 1 hour ago, recreational alcohol usage, smokes 1 PPD ~ 5 years, uses percocet. Allergies: Penicillins Past History - Past Medical History Allergies/Adverse Reactions: Allergies Allergy/AdvReac Type Severity Reaction Status Date / Time Penicillins Allergy Unknown Verified 09/01/18 07:18 Home Medications: Ambulatory Orders Emtricitab/Rilpiviri/Tenof Ala [Odefsey Tablet] 1 each PO DAILY 06/06/16 Azithromycin [Zithromax 250mg Tablets -] 250 mg PO UTDICT #6 tab 06/07/16 Biotin 0 mg PO DAILY 06/07/16 Milk Thistle 0 mg PO DAILY 06/07/16 Multivitamins [Multivit ([facility] Formulary)] 1 tab PO DAILY 06/07/16 predniSONE [Deltasone -] 40 mg PO DAILY #10 tablet 06/07/16 COPD: No Hypercholesterolemia: Yes - Suicide/Smoking/Psychosocial Hx Smoking History: Current every day smoker Have you smoked in the past 12 months: Yes Number of Cigarettes Smoked Daily: 10 Information on smoking cessation initiated: No 'Breaking Loose' booklet given: 06/07/16 Hx Alcohol Use: No Drug/Substance Use Hx: No Substance Use Type: None Review of Systems - Review of Systems Able to Perform ROS?: Yes Constitutional: Yes: Chills, Diaphoresis HEENTM: Yes: Nose Congestion. No: Blurred Vision Respiratory: Yes: Shortness of Breath Cardiac (ROS): Yes: Symptoms Reported, Irregular Heart Rate, Lightheadedness, Syncope ABD/GI: Yes: Nausea : No: Burning, Dysuria, Discharge Musculoskeletal: No: Back Pain Integumentary: Yes: Pallor, Sweating. No: Bruising, Change in Color Neurological: Yes: Headache, Dizziness Psychiatric: Yes: Anxiety, Emotional Problems, Mood Swings Endocrine: Yes: Excessive Sweating, Flushing Hematologic/Lymphatic: No: Anemia *Physical Exam - Vital Signs Last Vital Signs Temp Pulse Resp BP Pulse Ox 97.7 F 114 H 17 141/87 98 09/01/18 07:00 09/01/18 07:00 09/01/18 07:00 09/01/18 07:00 09/01/18 07:00 - Physical Exam General Appearance: Yes: Nourished, Appropriately Dressed, Apparent Distress, Mild Distress HEENT: positive: EOMI, PIPER (dilated pupils), Normal ENT Inspection, Normal Voice Neck: positive: Supple Respiratory/Chest: positive: Lungs Clear, Normal Breath Sounds. negative: Respiratory Distress, Accessory Muscle Use Cardiovascular: positive: Regular Rhythm, S1, S2, Tachycardia Vascular Pulses: Dorsalis-Pedis (R): 2+, Doralis-Pedis (L): 2+ Gastrointestinal/Abdominal: positive: Soft. negative: Tender Rectal Exam: positive: deferred Lymphatic: negative: Adenopathy Musculoskeletal: positive: Normal Inspection. negative: CVA Tenderness Extremity: positive: Normal Capillary Refill, Normal Inspection, Normal Range of Motion Integumentary: positive: Normal Color, Dry, Warm Neurologic: positive: oleomargarine maker II-XII NML intact, Fully Oriented, Alert, Normal Mood/ Affect, Normal Response, Motor Strength 5/5 Medical Decision Making - Medical Decision Making 33 yo M w a pmh of HIV/AIDs and polysubstance abuse presents to the ER secondary to on and off syncopal episodes. He reports that he did cocaine 1 hour prior to arrival which explains why he is tachycardic in triage. The patient states that for the past month he has been experiencing on and off syncopal episodes which frequently occur when he drinks a significant amount of alcohol, does cocaine, or has sex for over an hour. He states that 2 weeks prior that while he was having intercourse with his girlfriend for 2 hours his heart started racing, he felt dizzy, nauseous, and felt like he was going to pass out. He reports to be adherent to his HIV ART therapy medications. VS: Tachycardia, otherwise wnl DDx IBNLT: Substance use/abuse, ACS/ND, arrhythmia, electrolyte/metabolic disturbance, syncope, seizure. Plan: Labs, urine, ekg, cxr, re-assess. Patient reports he wants to sign out AMA because his girlfriend is here and states he will come back to the ER later on today. - He agrees to let us take an EKG before he signs out AMA. - EKG normal sinus at a rate of 91 *DC/Admit/Observation/Transfer Diagnosis at time of Disposition: Dizziness, Nausea, HIV (human immunodeficiency virus infection), Substance abuse - Discharge Dispostion Disposition: AGAINST MEDICAL ADVICE Condition at time of disposition: Stable Decision to Admit order: No - Referrals Referrals: Bin Kim [Primary Care Provider] - - Patient Instructions Printed Discharge Instructions: DI for Syncope in Adults (Fainting), Cocaine Use Disorder Additional Instructions: Please come back to the ER or schedule an appointment with a doctor ZHENG to be evaluated. It is extremely important that your condition be worked up to prevent you from experiencing further syncopal episodes, passing out, heart attacks, other disability, or any other adverse events. Come back to the ER immediately if you have any new or worsening concerns. Thank you for coming to the [facility] ER. We hope you feel better soon Print Language: MALAGASY - Post Discharge Activity
[2018-09-01] MEDS ORDERED: SODIUM CHLORIDE 1,000 ML IV STA (07:46)
--- NOTE | 2018-09-01 08:09 | PDOC ---
Attending Attestation - Resident Resident Name: Marquis Delaney - ED Attending Attestation I have performed the following: I have examined & evaluated the patient, The case was reviewed & discussed with the resident, I agree w/resident's findings & plan - HPI HPI: 09/01/18 08:03 33-year-old male with history of HIV on medications with reportedly normal counts, polysubstance abuse including cocaine (last use about one hour ago), occasional Xanax once or twice a week, alcohol, and recently self detox from opiates about 3 weeks ago presents now with 2-3 episodes of syncope over the last 3 days. Patient was reportedly in his usual state of health, has had 2-3 episodes that he describes as syncope with prodrome, feels generally weak and as though he is "nodding off" and then awakes without postictal period. No seizure-like activity, no associated headache/vision change/speech change/nausea /vomiting/chest pain/palpitations/focal deficit, no recent fever/chills/ infectious complaints, no recent dehydration, feels well otherwise. Has had routine workups in the past with normal EKGs. He exercises at the gym and has no dyspnea or chest pain on exertion. Presents today because he was driving home about 2 hours ago and fell asleep, took cocaine to wake himself up, was at breakfast and started falling asleep again, so he presents for evaluation. He currently feels completely fine, wants to leave. - Physicial Exam PE: 09/01/18 08:06 Vitals as noted, slight tachycardia at triage of 114, on my examination heart rate has normalized and is about 90 Seated upright in stretcher speaking full sentences, no trauma Pupils are dilated bilaterally but reactive. Heart is regular without ectopy or murmur, lungs are clear Neurological exam is normal - Medical Decision Making 09/01/18 08:06 33-year-old male with HIV and polysubstance abuse presents with concern for syncope, hemodynamically stable with normal exam. Differential is broad, could be syncope versus seizure versus somnolence given the context of his story. Unlikely directly tox related at this time, has no evidence of intoxication or withdrawal syndrome, and the previous episode of loss of consciousness this morning occurred prior to using cocaine. We'll perform full cardiac workup given his history, monitor on telemetry The patient does not want to stay for workup, states he has to go to work, understands full spectrum of risk of leaving without this workup. We convinced him to stay for an EKG at least, but he will likely sign out AGAINST MEDICAL ADVICE if that does not show any acute abnormality. Heart Score/ECG Review #1 ECG reviewed & interpreted by me at: 08:04 General ECG Interpretation: Sinus Rhythm (no ectopy), Normal Rate (91), Normal Intervals (qtc 440), No acute ischemic changes (early repol, no ischemic change)
--- NOTE | 2018-09-01 09:46 | EKG ---
Test Reason : Blood Pressure : / mmHG Vent. Rate : 091 BPM Atrial Rate : 091 BPM P-R Int : 128 ms QRS Dur : 088 ms QT Int : 358 ms P-R-T Axes : 046 -10 018 degrees QTc Int : 440 ms NORMAL SINUS RHYTHM NORMAL ECG WHEN COMPARED WITH ECG OF 06-JUN-2016 17:58, NONSPECIFIC T WAVE ABNORMALITY NOW EVIDENT IN LATERAL LEADS Confirmed by NAIF DE LA ROSA, AMANDO ([id number]) on 09/01/2018 9:46:15 AM Referred By: Confirmed By:AMANDO DISLA MD
== END 2018-09-01 08:17 | disposition left against medical advice (07) ==
LOC: JER 06:22
DX: R55 Syncope and collapse (principal); F19.10 Other psychoactive substance abuse, uncomplicated; F14.10 Cocaine abuse, uncomplicated; F17.210 Nicotine dependence, cigarettes, uncomplicated; Z21 Asymptomatic human immunodeficiency virus [HIV] infection status
CPT/HCPCS: 93005; 93010; 99281-25

== ENCOUNTER 2018-12-08 08:46 | Emergency (ER) | payer OTHER, BC | END 2018-12-08 11:15 | disposition home or self-care (01) | LOC: JER 08:46 ==